=== PATIENT | male | born 1950 | race Caucasian/White ===

== ENCOUNTER → 2017-05-05 | Outpatient (CLI) | payer BC | LOC: FIMAGING 10:11 | DX: S76.111A Strain of right quadriceps muscle, fascia and tendon, initial encounter (principal); M24.10 Other articular cartilage disorders, unspecified site; M25.461 Effusion, right knee; Z98.890 Other specified postprocedural states ==

== ENCOUNTER → 2018-05-13 | Outpatient (CLI) | payer BC ==
[~2018-05-13] MED LIST: GADOBUTROL 10 ML VIAL IVP ONE
== END ==
LOC: FIMAGING 13:57
PROVIDERS: ATTEND Physical Medicine & Rehabilitation
DX: M54.5 Low back pain (principal)
CPT/HCPCS: 82565-PO; A9585